=== PATIENT | male | born 1965 | race Caucasian/White ===

== ENCOUNTER 2019-04-22 07:12 | Day surgery (SDC) | payer OTHER ==
[~2019-04-22 07:12] MED LIST: CEFAZOLIN 2 Gram 2 GM/50 ML BAG IVPB ONE; CELECOXIB 100 MG CAPSULE PO ONE; FAMOTIDINE 20MG TABLET PO ONE; MECLIZINE 25 MG TABLET PO ONE; METOCLOPRAMIDE 10 MG TABLET PO ONE; VANCOMYCIN 1GM/200ML PREMIX 1 GM/200 ML PIGGYBACK IVPB ONE
[2019-04-22] MEDS ORDERED: LIDOCAINE 2% MDV (20MG/ML) 20ML VIAL IV ONE (07:13)
[2019-04-22] MEDS ORDERED: MIDAZOLAM HCL 2MG/2ML VIAL IV ONE (07:13)
[2019-04-22] MEDS ORDERED: DEXAMETHASONE 4 MG/ML 1ML VIAL IVP ONE (07:13)
[2019-04-22] MEDS ORDERED: *PACU ONLY* KETAMINE HCL 10 MG/ML (20ML) VIAL IV ONE (07:13)
[2019-04-22] MEDS ORDERED: ROPIVACAINE HCL (NAROPIN) /PF 5MG/ML 20ML VIAL IV ONE (07:13)
[2019-04-22] MEDS ORDERED: PROPOFOL 10 MG/ML VIAL IV ONE (07:13)
[2019-04-22] MEDS ORDERED: RINGERS SOLUTION,LACTATED 1,000 ML IV ONE ×2 (07:55→09:30)
[2019-04-22 08:17] LABS: ABO GROUP O; ANTIBODY SCREEN NEGATIVE (NEGATIVE); RH TYPE POSITIVE
[2019-04-22] MEDS ORDERED: TRANEXAMIC ACID 1,000 MG/10 ML ML IV ONE (09:38)
[2019-04-22] MEDS ORDERED: TRANEXAMIC ACID 1,000 MG/10 ML ML IU ONE (09:38)
[2019-04-22] MEDS ORDERED: BUPIVACAINE 0.5% W/EPI MPF 30 ML VIAL IU ONE (09:38)
[2019-04-22] MEDS ORDERED: ONDANSETRON HCL IV 4 MG/2 ML VIAL IVP PRN (10:51)
[2019-04-22] MEDS ORDERED: TRAMADOL HCL 50 MG TABLET PO PRN (10:51)
[2019-04-22] MEDS ORDERED: KETOROLAC 30 MG/ML VIAL IVP PRN (10:51)
[2019-04-22] MEDS ORDERED: BISACODYL 10 MG SUPP RC PRN (10:51)
[2019-04-22] MEDS ORDERED: DIPHENHYDRAMINE HCL 25 MG CAPSULE PO PRN (10:51)
[2019-04-22] MEDS ORDERED: MAGNESIUM HYDROXIDE 30 ML UDC PO PRN (10:51)
[2019-04-22] MEDS ORDERED: AL HYDROX/MAG HYDROX 30ML UD PO PRN (10:51)
[2019-04-22] MEDS ORDERED: HYDROCODONE/APAP 10/325 TABLET PO PRN ×2 (10:51)
[2019-04-22] MEDS ORDERED: HYDROMORPHONE HCL 2 MG/ML VIAL IM PRN (10:51)
[2019-04-22] MEDS ORDERED: ZOLPIDEM TARTRATE 5 MG TABLET PO PRN (10:51)
[2019-04-22] MEDS ORDERED: ACETAMINOPHEN 325 MG TAB PO PRN (10:51)
[2019-04-22] MEDS ORDERED: NALOXONE 0.4 MG/1 ML VIAL IVP PRN (10:51)
[2019-04-22] MEDS: POTASSIUM CHLORIDE/D5-0.9%NACL 20 MEQ/1,000 ML BAG IV SCH ×2 (13:07→22:03)
--- NOTE | 2019-04-22 14:44 | Rehab Evaluation ---
Patient Information - Patient Information Diagnosis: R knee DJD Ordered Treatment: PT Evaluate and Treat Status: Initial Evaluation Surgery: Yes (R TKA) Date of Surgery: 04/22/19 Past Medical/Surgical Hx: PAST MEDICAL/SURGICAL HISTORY Surgery to Affected Area? No Recent Surgery? Past Surgical History bilat knee scopes LEFT SHOULDER SX C SCOPES PMH - Respiratory Hx Respiratory Disorders No PMH - Cardiovascular Hx Cardiovascular Disorders Yes Exercise Tolerance Good Comment: HYPERLIPIDEMIA PMH - Neuro Hx Neurological Disorders Yes Hx Headaches Yes: OCCASSIONALLY PMH - GI Hx Gastrointestinal Disorders Yes Hx Gastroesophageal Reflux Yes Hx Ulcer Yes: BLEEDING ULCER AGE 22 PMH - Hx Genitourinary Disorders Yes Hx Kidney Stones Yes: HX OF PMH - Endocrine Hx Endocrine Disorders Yes Hx Thyroid Disease Yes: HYPO ON MEDS PMH - Musculoskeletal Hx Musculoskeletal Disorders Yes Hx Arthritis Yes: RIGHT KNEE PMH - Psych Hx Psychiatric Problems Yes Hx Anxiety Yes Hx Depression Yes Comment: INSOMNIA PMH - Hematology/Oncology Hx Hematology/Oncology Yes Disorders Hx Blood Transfusion Reaction No Premorbid Status: Detail (The patient was independent with all mobility prior to surgery.) Social History: Detail (The pt. lives alone in a trilevel house with 2 steps at the enterance and 5 steps, a landing and 5 steps with one handrail between floors. The bathroom is equipped with: a tub/shower combination, hand held shower and a standard height toilet. There are no grab bars in the bathroom. The patient has a front wheeled walker , quad cane and crutches.) Precautions: [place], Fall, Other (WBAT on the R LE.) - Time With Patient Total Time Spent With Patient (Min): 30 Treatment Procedures: Detail (Initial Evaluation, low complexity) Subjective Information - Subjective Information Per Patient (The patient had no complaints of pain. The patient was anxious ie: being able to manage all alone.) Objective Data - Mental Status Patient Orientation: Oriented x3 - Visual Perception Appears within normal limits for therapeutic activities - ROM Not within normal limits (The patient's R knee AROM is limited as to be expected following surgery. All other AROM was WNL.) - Strength/Tone Not within normal limits (The patient's LE strength was not tested s/p surgery however was functional.) - Bed Mobility Independent (The patient was independent with supine to and from sit transfer and scooting up in bed.) - Transfers Independent (The patient was independent with sit to and from stand transfer and toilet transfer.) - Balance Balance Sitting: Good Balance Standing: Good - Gait Detail (The patient ambulated with front wheeled walker WBAT on the R LE independently a distance of 120 feet x 1.) Therapy Assessment - Therapy Assessment Detail (The patient was independent with bed mobility, transfers and ambulation on level surfaces. Anticipate the patient will complete inpt. PT goals in 1-2 visits.) Problem List - Problem List Physical Therapy Problem List: Detail (Decreased R knee AROM and strength as to be expected following surgery.) Goals - Goals Physical Therapy Goals: 1) The patient will be independent with TKA HEP. 2) The patient will ambulate on flights of stairs independently using proper technique. Prognosis - Prognosis Good Plan - Plan Physical Therapy Plan: PT 1-2 sessions for gait training on stairs and instruction in TKA HEP.
[2019-04-22] MEDS ORDERED: SIMVASTATIN 20MG PO SCH (16:30)
[2019-04-22] MEDS ORDERED: OMEPRAZOLE 40MG PO SCH (16:30)
[2019-04-22] MEDS: ACETAMINOPHEN W/ CODEINE 300MG/60MG TABLET PO PRN ×2 (16:36→22:06)
[2019-04-22] MEDS: CEFAZOLIN 2 Gram 2 GM/50 ML BAG IVPB SCH (16:38)
[2019-04-22] MEDS ORDERED: ESCITALOPRAM 20MG PO SCH (22:00)
[2019-04-22] MEDS ORDERED: ALPRAZOLAM 0.5MG PO SCH (22:00)
[2019-04-23] MEDS: CEFAZOLIN 2 Gram 2 GM/50 ML BAG IVPB SCH ×2 (01:00→09:26)
[2019-04-23] MEDS: POTASSIUM CHLORIDE/D5-0.9%NACL 20 MEQ/1,000 ML BAG IV SCH ×2 (05:33→11:49)
[2019-04-23] MEDS: ACETAMINOPHEN W/ CODEINE 300MG/60MG TABLET PO PRN ×3 (06:11→13:21)
[2019-04-23 06:37] LABS: HEMATOCRIT 42.1 % (42.0-52.0)
[2019-04-23 06:52] LABS: BLOOD UREA NITROGEN 10 mg/dL (6-20); CREATININE 0.7 mg/dL (0.7-1.2); EST GLOMERULAR FILTRATION RATE > 60 mL/min; GLUCOSE,RANDOM 132 mg/dL (74-109)
[2019-04-23] MEDS ORDERED: LEVOTHYROXINE 150 MCG PO SCH (07:00)
--- NOTE | 2019-04-23 07:30 | Operative Note ---
DATE OF SURGERY: 04/22/2019 PREOPERATIVE DIAGNOSIS: End-stage arthrosis of the right knee. POSTOPERATIVE DIAGNOSIS: End-stage arthrosis of the right knee. OPERATION: Cemented right total knee arthroplasty using Siegel and Nephew components with a size 6 Legion Oxinium femur, a size 6 stemmed tibia baseplate, a 9 mm lipped highly crosslinked tibial insert, and a 35 mm all-plastic patella. STAFF SURGEON: Reese Pennington MD ANESTHESIA: Spinal. PREPARATION: Chloraprep. INDIVIDUAL CONSIDERATIONS: None. PROCEDURE: The patient was taken to the operating room, placed supine on the operating room table. He had a successful induction of a spinal anesthetic. The right lower extremity was prepped and draped in the usual fashion. The limb was elevated and tourniquet was inflated to 250 mmHg. The patient had a midline approach to the knee. Sharp dissection carried down through skin and subcutaneous tissue. Small veins were coagulated with a Bovie. A medial arthrotomy was performed. The patella was everted and the knee was flexed. The patient had exposed bone in the medial and patellofemoral compartments with bone loss. Fat pad was resected, ACL was sacrificed, and provisional anterior meniscectomies were performed. The capsule was released from the medial proximal tibia. The initial femoral towing pilot hole was then made freehand. The intramedullary femoral cutting jig was placed. It was cut in 7.0 degrees of valgus and adjusted for rotation and secured with pins for a 10 mm resection. The initial transverse cut was then made. The skin guide was placed in 3 degrees of external rotation. The towing pilot holes were impacted. It was found that a size 6 would be appropriate. The anterior and posterior cuts followed by chamfer cuts were made. Osteophytes removed, and a size 6 trial was placed and found to fit well. The tibia was brought forward, and the remainder of the meniscal remnants removed with a Bovie. The extraarticular tibial cutting jig was placed. It was cut in neutral with a 3-degree AP slope. It was set for a 9 mm resection keyed off the high lateral side and secured with pins. When cutting the tibia, care was taken to preserve the PCL insertion on the tibia. After removing osteophytes, I could easily fit a size 6. It was secured provisionally with pins. With a 9 mm trial and femoral trial, there was excellent motion and stability. Ligamentous balance and rotation alignment were thought to be normal. Femoral towing pilot holes were impacted and the tibial keel stamp was impacted, and these trial components were removed. The patient had a thick patella and roughly 9 mm of bone was removed freehand. I was easily able to fit a 35 patella. The 3 towing pilot holes were drilled. The knee was then thoroughly irrigated out with pulsatile Betadine and saline to remove any visual or palpable debris. The tourniquet was let down briefly to get bleeders posteriorly and then placed back up again. Again thorough irrigation. Bony surfaces were then dried. A size 6 stemmed tibia baseplate was cemented into place followed by impaction of the 9 mm lipped highly crosslinked tibial insert followed by cementing in the size 6 Oxinium femur followed by cementing in the 35 mm patella. The implant surfaces were compressed, excess cement was removed. After the cement had set, there was excellent motion and stability. Ligamentous balance, rotation alignment, and patellofemoral tracking were normal. No lateral release was required. Tourniquet was let down. Hemostasis was obtained with a Bovie. The capsule was then closed with a running #2 quill, subcu was closed in layers with running 0 quill, skin was closed with candace. Prior to closure the skin and subcu tissue were infiltrated with 30 mL of 0.5% Marcaine with epinephrine. After closure, 30 mL of saline was mixed with 1 g of tranexamic acid. This was injected into the knee through a sterile 18-gauge needle, and a sterile bulky compressive MARC-type dressing was applied. The patient tolerated the procedure well. Needle and sponge counts were correct. Estimated blood loss was minimal, and he was taken back to recovery in good condition. There were no complications. ERNA
[2019-04-23] MEDS ORDERED: RIVAROXABAN 10 MG TABLET PO SCH (10:00)
[2019-04-23] MEDS ORDERED: FERROUS SULFATE 325 MG TAB PO SCH (10:00)
--- NOTE | 2019-04-23 11:43 | Physical Therapy Tx Note ---
Physical Therapy Tx Note - Treatment Note Tolerated: Good Total Time Spent With Patient: 30 Physical Therapy Tx Note: Detail (Patient was sleeping sidelying upon [facility] arrival. Patient states he's tired this morning, didn't sleep well last night due to knee pain. Patient transferred sidelying to supine independently. Patient transferred supine to sit independently. Patient donned pants with min assist to straighten pant leg out to get past non-skid socks. Patient transferred sit to and from stand SBA x1. Patient ambulated 338 feet with wheeled walker SBA x1. Patient descended and ascended 11 steps with using railing CGA x1. Patient transferred sit to supine independently. Patient scooted up in bed independently. Patient performed the following exercises supine in bed x5-10 reps each: ankle pumps, glut squeezes, quad sets, hamstring sets, heel slides, and SLR. Patient tolerated treatment well. Patient displays good understanding of HEP, ambulation with walker, and stair climbing. Patient was left reclined in bed with nurse in room. Patient discharged from inpatient PT at this time as all goals are met.) Physical Therapy Problem List: Detail (Decreased R knee AROM and strength as to be expected following surgery.) Physical Therapy Goals: 1) The patient will be independent with TKA HEP. Met. 2) The patient will ambulate on flights of stairs independently using proper technique. Met. Prognosis: Good Physical Therapy Plan: Patient discharged from inpatient PT at this time as all goals are met.
--- NOTE | 2019-04-23 12:04 | Rehab Evaluation ---
Patient Information - Patient Information Diagnosis: R knee DJD Ordered Treatment: OT Evaluate and Treat Status: Initial Evaluation Surgery: Yes (R TKA) Date of Surgery: 04/22/19 Past Medical/Surgical Hx: PAST MEDICAL/SURGICAL HISTORY Surgery to Affected Area? No Recent Surgery? Past Surgical History bilat knee scopes LEFT SHOULDER SX C SCOPES PMH - Respiratory Hx Respiratory Disorders No PMH - Cardiovascular Hx Cardiovascular Disorders Yes Exercise Tolerance Good Comment: HYPERLIPIDEMIA PMH - Neuro Hx Neurological Disorders Yes Hx Headaches Yes: OCCASSIONALLY PMH - GI Hx Gastrointestinal Disorders Yes Hx Gastroesophageal Reflux Yes Hx Ulcer Yes: BLEEDING ULCER AGE 22 PMH - Hx Genitourinary Disorders Yes Hx Kidney Stones Yes: HX OF PMH - Endocrine Hx Endocrine Disorders Yes Hx Thyroid Disease Yes: HYPO ON MEDS PMH - Musculoskeletal Hx Musculoskeletal Disorders Yes Hx Arthritis Yes: RIGHT KNEE PMH - Psych Hx Psychiatric Problems Yes Hx Anxiety Yes Hx Depression Yes Comment: INSOMNIA PMH - Hematology/Oncology Hx Hematology/Oncology Yes Disorders Hx Blood Transfusion Reaction No Premorbid Status: Detail (The patient was independent with all I/ADLs and functional mobility prior to surgery.) Social History: Detail (The Pt lives alone in a trilevel home with 2 steps at the entrance w/o handrails, and 5 steps and a left side handrail between floors. The bathroom is equipped with a tub/shower combination, hand held shower and a standard height toilet. There are no grab bars in the bathroom and no shower chair. The patient has two front wheeled walker - 1 for each level of home, quad cane and crutches.) Precautions: [place], Fall, Other (WBAT on the R LE.) - Time With Patient Total Time Spent With Patient (Min): 30 (1 OT eval low complexity, 1 ADL) Subjective Information - Subjective Information Per Patient (Pt supine in bed upon therapist arrival, agreeable to OT eval and Tx, returned to bed w/ call light in reach upon end of session.) Objective Data - Pain Pain Present: Yes (11/04, recently had pain meds per Pt) - Mental Status Patient Orientation: Oriented x3 - Visual Perception Appears within normal limits for therapeutic activities - ROM Within normal limits (B UEs) - Strength/Tone Within normal limits (B UEs) - Coordination Appears within normal limits for therapeutic activities - Bed Mobility Independent (supine >< EOB) - Transfers Independent (Sit-stand from low bed to FWW w/ good balance and safety awareness, minimal walker support.) - Balance Balance Sitting: Good Balance Standing: Good, Fair - Sensation Intact - Gait Detail (Fxl mobility within bedroom w/ FWW w/ good balance. Demo and educ. re: safe FWW use and positioning, Pt demos good follow thru.) - ADL's/IADL's Detail (OT educates/demos modified techs for LB dressing and Pt demos good follow thru to don/doff underwear, pants, socks, and shoes. Instruction re: tedhose wearing schedule and techs to don/doff, Pt verbalizes understanding but declines practice. Therapist educates Pt on tub/shower TF technique and benefits of and where to obtain shower chair and shower grab bars. Pt states he plans to sponge bathe for a while at [place].) - Special Tests No Therapy Assessment - Therapy Assessment Detail (Despite increased pain and effort, Pt demos and verbalizes MOD I w/ all self-care and fxl TFs. Pt appears ready for [place] home when medically ready, however verbalizes anxiety re: return home independently, as he is recently and will be home alone.) Patient Education - Patient Education Teaching Topic: Other (modified techs, home mods, etc.) Response: Return Demonstration, Verbalize Understanding Teaching Method: Discussion, Demonstration Teaching Recipient: Patient Barriers To Learning: None Problem List - Problem List Physical Therapy Problem List: Detail (Decreased R knee AROM and strength as to be expected following surgery.) Occupational Therapy Problem List: Detail (No further IP OT needs identified.) Goals - Goals Physical Therapy Goals: 1) The patient will be independent with TKA HEP. Met. 2) The patient will ambulate on flights of stairs independently using proper technique. Met. Occupational Therapy Goals: No further IP OT needs/goals identified. Prognosis - Prognosis Good Plan - Plan Physical Therapy Plan: Patient discharged from inpatient PT at this time as all goals are met. Occupational Therapy Plan: No further IP OT needs identified. DC skilled OT. Thank you for this referral.
== END 2019-04-23 15:55 | disposition home health service (06) ==
LOC: SUR 07:12 → MEDSURG 11:22 → SUR 04-23 15:55
PROVIDERS: ATTEND Orthopaedic Surgery
DX: M17.11 Unilateral primary osteoarthritis, right knee (principal); E78.00 Pure hypercholesterolemia, unspecified; E03.9 Hypothyroidism, unspecified
CPT/HCPCS: 76942; 80048; 85014; 85018; 86850; 86900; 86901; C1776; J3370; J3480; J7120